=== PATIENT | female | born 1965 | race Two or more races ===

== ENCOUNTER → 2025-02-04 | Outpatient (CLI) | payer MEDICAID, SELFPAY ==
--- NOTE | 2025-02-04 10:50 | XR_ITS ---
Examination: CT abdomen, without intravenous contrast. CT pelvis, without intravenous contrast. CT abdomen, with intravenous contrast. CT pelvis, with intravenous contrast. 2-D sagittal coronal reconstructions. Date and time of exam:February 04, 2025 1118 hours INDICATIONS: Left lower quadrant abdominal pain beginning 4 months ago CTDI: vol (mGy) 21.4 DLP: (mGycm) 1153 Technique: Multiple 3.0 axial images of the abdomen and pelvis without intravenous contrast, 3.0 mm slice thickness. Multiple 3.0 postcontrast images abdomen and pelvis also obtained, post intravenous injection 60 cc [id number] 2-D sagittal and coronal reconstructions. Low dose protocols were performed. One or more of the following dose reduction techniques were used; automated exposure control, adjustment of the mA and/or KV according to patient size, use of iterative reconstruction technique. Findings: No focal liver or splenic lesion Absent gallbladder No pancreatic or adrenal mass No renal or ureteral calculi, no hydronephrosis Aorta normal size No pericecal inflammatory change Colonic diverticulosis, no diverticulitis Urinary bladder intact No pelvic mass IMPRESSION: Absent gallbladder No renal or ureteral calculi, no hydronephrosis No CT findings of appendicitis or bowel obstruction Colonic diverticulosis, no diverticulitis Moderate degenerative disc disease L5-S1
== END | disposition home or self-care (01) ==
LOC: CCTX 10:24
PROVIDERS: PCP Family Medicine; Referring Provider Internal Medicine; Visit Provider Internal Medicine
DX: K57.30 Diverticulosis of large intestine without perforation or abscess without bleeding (principal); M51.370 Other intervertebral disc degeneration, lumbosacral region with discogenic back pain only; Z90.49 Acquired absence of other specified parts of digestive tract
CPT/HCPCS: 74178; A4649; Q9967